=== PATIENT | male | born 1990 | race Caucasian/White ===

== ENCOUNTER 2024-09-17 13:36 | Inpatient (IN) | payer OTHER ==
[2024-09-17 14:16] LABS: Basophils % (A) 0 %; Eosinophils # (A) 0.2 k/uL (0-0.7); Eosinophils % (A) 2 %; HGB 14.9 gm/dL (13.0-17.5); Lymphocytes # (A) 1.8 k/uL (1.0-4.8); Lymphocytes % (A) 18 %; MCH 29.1 pg (25.0-35.0); MCHC 33.2 g/dL (31.0-37.0); MCV 87.7 fL (80.0-100.0); Mean Platelet Volume 6.5; Monocytes # (A) 0.5 k/uL (0-1.0); Monocytes % (A) 6 %; Neutrophils # (A) 7.3 k/uL (1.3-7.7); Neutrophils % (A) 74 %; Platelet Count 343 k/uL (150-450); RBC 5.13 m/uL (4.30-5.90); RDW 12.4 % (11.5-15.5); WBC 9.9 k/uL (3.8-10.6)
[2024-09-17] MEDS: SODIUM CHLORIDE 0.9% 1,000 ML IV STA (14:19)
[2024-09-17 14:28] LABS: ALT 14 U/L (4-49); AST 14 U/L (17-59); Acetaminophen <10.0 ug/mL; African American GFR (CKD) >90 (>60 ml/min/1.73 sqM); Albumin 4.8 g/dL (3.5-5.0); Alcohol <10 mg/dL; Alkaline Phosphatase 81 U/L (38-126); Anion Gap 15 mmol/L; Blood Urea Nitrogen 10 mg/dL (9-20); Calcium 10.1 mg/dL (8.4-10.2); Carbon Dioxide 28 mmol/L (22-30); Chloride 101 mmol/L (98-107); Glucose 127 mg/dL (74-99); Lipase 34 U/L (23-300); Non-African American GFR(CKD) >90 (>60 ml/min/1.73 sqM); Potassium 4.2 mmol/L (3.5-5.1); Salicylate <1.0 mg/dL; Sodium 144 mmol/L (137-145); Total Bilirubin 0.4 mg/dL (0.2-1.3); Total Protein 7.9 g/dL (6.3-8.2)
[2024-09-17] MEDS ORDERED: NALOXONE 0.4 MG/ML 1 ML VIAL IV PRN (16:29)
--- NOTE | 2024-09-17 16:29 | ED ---
Overdose HPI - General Chief Complaint: Overdose Stated Complaint: OD/SI Time Seen by Provider: 09/17/24 13:45 Source: patient, EMS Mode of arrival: EMS - History of Present Illness Initial Comments: 33-year-old male who presents emergency department after he overdosed on clonidine. Patient went into [facility] today. He has a history of polysubstance abuse including cocaine, heroin and methamphetamines. States he last used 3 days ago. He also admits to intermittently drinking however infrequent. He took 20 tablets of 0.1 mg clonidine which was previously p rescribed for symptoms of opiate withdrawal. He states he took these medications in an attempt to get high. He denies that he tried to take these to harm himself. He denies abuse of any other substances or medications. When checking into [facility] [place] patient was sedated and having difficulty standing up straight. He did admit that he took in excess of the clonidine and therefore they recommended medical clearance. Patient is awake, alert and able to a provide history at this time. He denies headaches, visual changes, nausea, vomiting, chest pain, difficulty breathing. No other alleviating, precipitating or modifying factors - Related Data Home Medications Medication Instructions Recorded Confirmed Albuterol Inhaler [Ventolin Hfa 2 puff INHALATION RT-QID PRN 09/17/24 09/17/24 Inhaler] Desvenlafaxine [Pristiq ER] 100 mg PO DAILY 09/17/24 09/17/24 Fluticasone Propion/Salmeterol 2 puff INHALATION RT-BID 09/17/24 09/17/24 [Advair Hfa 115-21 Mcg Inhaler] Naltrexone HCl [Revia] 50 mg PO DAILY 09/17/24 09/17/24 Paliperidone [Invega] 9 mg PO DAILY 09/17/24 09/17/24 cloNIDine HCL [Catapres] 0.1 mg PO TID 09/17/24 09/17/24 Allergies Allergy/AdvReac Type Severity Reaction Status Date / Time amoxicillin Allergy Unknown Verified 09/17/24 14:59 Childhood Penicillins Allergy Unknown Verified 09/17/24 14:59 Childhood Review of Systems ROS Statement: Those systems with pertinent positive or pertinent negative responses have been documented in the HPI. ROS Other: All systems not noted in ROS Statement are negative. Past Medical History Past Psychological History: ADD/ADHD, Anxiety, Depression Smoking Status: Current every day smoker Past Alcohol Use History: Occasional Past Drug Use History: Cocaine, Heroin, IV Drug Use, Methamphetamine, Opiates, Prescription Drug Abuse - Past Family History Mother Family Medical History: No Reported History Father Family Medical History: No Reported History General Exam General appearance: alert, other (appears sedated) Head exam: Present: atraumatic, normocephalic, normal inspection Eye exam: Present: normal appearance, PERRL, EOMI. Absent: scleral icterus, co njunctival injection, periorbital swelling ENT exam: Present: normal exam, mucous membranes moist Neck exam: Present: normal inspection. Absent: tenderness, meningismus, lymphadenopathy Respiratory exam: Present: normal lung sounds bilaterally. Absent: respiratory distress, wheezes, rales, rhonchi, stridor Cardiovascular Exam: Present: normal rhythm, bradycardia, normal heart sounds. Absent: systolic murmur, diastolic murmur, rubs, gallop, clicks GI/Abdominal exam: Present: soft, normal bowel sounds. Absent: distended, tenderness, guarding, rebound, rigid Extremities exam: Present: normal inspection, full ROM, normal capillary refill. Absent: tenderness, pedal edema, joint swelling, calf tenderness Back exam: Present: normal inspection Neurological exam: Present: alert, oriented X3, CN II-XII intact Psychiatric exam: Present: normal affect, normal mood Skin exam: Present: warm, dry, intact, normal color. Absent: rash Course Vital Signs 09/17/24 09/17/24 09/17/24 13:41 14:17 14:30 Temperature 98.1 F Pulse Rate 56 L 46 L 43 L Respiratory 14 18 12 Rate Blood Pressure 106/63 111/74 123/66 O2 Sat by Pulse 99 98 98 Oximetry 09/17/24 09/17/24 09/17/24 15:11 16:07 17:24 Temperature Pulse Rate 44 L 46 L 59 L Respiratory 13 12 16 Rate Blood Pressure 112/68 118/76 119/80 O2 Sat by Pulse 98 97 98 Oximetry 09/17/24 09/17/24 09/17/24 17:41 18:29 18:47 Temperature Pulse Rate 79 65 61 Respiratory 16 16 16 Rate Blood Pressure 81/50 115/61 92/71 O2 Sat by Pulse 97 97 97 Oximetry 09/17/24 19:58 Temperature 98.4 F Pulse Rate 48 L Respiratory 16 Rate Blood Pressure 109/60 O2 Sat by Pulse 95 Oximetry Medical Decision Making - Medical Decision Making Was pt. sent in by a medical professional or institution (ISAIAS Watkins, OPERATIONS WELDER, urgent ca re, hospital, or care home...) When possible be specific @ -Patient was sent in from [place] Did you speak to anyone other than the patient for history (EMS, parent, family, police, friend...)? What history was obtained from this source @ -Spoke with EMS for history Did you review nursing and triage notes (agree or disagree)? Why? @ -I reviewed and agree with nursing and triage notes Were old charts reviewed (outside hosp., previous admission, EMS record, old EKG, old radiological studies, urgent care reports/EKG's, care home records)? Report findings @ -No old charts were reviewed Differential Diagnosis (chest pain, altered mental status, abdominal pain women, abdominal pain men, vaginal bleeding, weakness, fever, dyspnea, syncope, headache, dizziness, GI bleed, back pain, seizure, CVA, palpatations, mental health, musculoskeletal)? @ -Differential Altered Mental Status: Hypoglycemia, DKA, hypercapnia, ETOH, overdose, CO poisoning, trauma, myxedema coma, HTN encephalopathy, infection, encephalitis, psychosis, intercranial hemorrhage, hepatic encephalopathy, meningitis, CVA, this is not meant to be an all-inclusive list EKG interpreted by me (3pts min.). @ -Yes and demonstrates sinus bradycardia with a rate of 53. PA interval 140. QRS 96. QTc of 398. J Point elevation in all leads. Biphasic T wave in lead V2 X-rays interpreted by me (1pt min.). @ -None done CT interpreted by me (1pt min.). @ -None done U/S interpreted by me (1pt. min.). @ -None done What testing was considered but not performed or refused? (CT, X-rays, U/S, labs)? Why? @ -None What meds were considered but not given or refused? Why? @ -None Did you discuss the management of the patient with other professionals (professionals i.e. ISAIAS Watkins, OPERATIONS WELDER, lab, RT, psych nurse, manager social services, manager of compliance, teacher, recruitment officer, case hardener)? Give summary @ -Spoke with poison control and Dr. levine for admission Was smoking cessation discussed for >3mins.? @ -No Was critical care preformed (if so, how long)? @ -No Were there social determinants of health that impacted care today? How? (Homelessness, low income, unemployed, alcoholism, drug addiction, transportation, low edu. Level, literacy, decrease access to med. care, halfway, rehab)? @ -patient currently in rehab Was there de-escalation of care discussed even if they declined (Discuss DNR or withdrawal of care, Hospice)? DNR status @ -No What co-morbidities impacted this encounter? (DM, HTN, Smoking, COPD, CAD, Cancer, CVA, ARF, Chemo, Hep., AIDS, mental health diagnosis, sleep apnea, morbid obesity)? @ -polysubstance abuse Was patient admitted / discharged? Hospital course, mention meds given and route, prescriptions, significant lab abnormalities, going to OR and other pertinent info. @ -Upon arrival patient seen and evaluated in bed 12. Thorough history and physical exam was performed. IV is established. Laboratory studies are conducted. We did contact poison control who reports that the patient needs 12 hours of observation with supportive care. Patient does have bradycardia however remains easily arousable. I did recommend admission for which the patient was agreeable. Spoke with Dr. Levine for the admission. Undiagnosed new problem with uncertain prognosis? @ -No Drug Therapy requiring intensive monitoring for toxicity (Heparin, Nitro, Insulin, Cardizem)? @ -No Were any procedures done? @ -No Diagnosis/symptom? @ -Acute toxic encephalopathy, clonidine overdose Acute, or Chronic, or Acute on Chronic? @ -Acute Uncomplicated (without systemic symptoms) or Complicated (systemic symptoms)? @ -Complicated Side effects of treatment? @ -No Exacerbation, Progression, or Severe Exacerbation? @ -No Poses a threat to life or bodily function? How? (Chest pain, [place], NE, pneumonia, PE, COPD, DKA, ARF, appy, cholecystitis, CVA, Diverticulitis, Homicidal, Suicidal, threat to staff... and all critical care pts) @ -yes as patient did overdose on medications needs - Lab Data Result diagrams: 09/18/24 06:34 09/18/24 06:34 Lab Results 09/17/24 09/17/24 09/17/24 Range/Units 13:45 14:11 14:11 WBC 9.9 (3.8-10.6) k/uL RBC 5.13 (4.30-5.90) m/uL Hgb 14.9 (13.0-17.5) gm/dL Hct 45.0 (39.0-53.0) % MCV 87.7 (80.0-100.0) fL MCH 29.1 (25.0-35.0) pg MCHC 33.2 (31.0-37.0) g/dL RDW 12.4 (11.5-15.5) % Plt Count 343 (150-450) k/uL MPV 6.5 Neutrophils % 74 % Lymphocytes % 18 % Monocytes % 6 % Eosinophils % 2 % Basophils % 0 % Neutrophils # 7.3 (1.3-7.7) k/uL Lymphocytes # 1.8 (1.0-4.8) k/uL Monocytes # 0.5 (0-1.0) k/uL Eosinophils # 0.2 (0-0.7) k/uL Basophils # 0.0 (0-0.2) k/uL Sodium 144 (137-145) mmol/L Potassium 4.2 (3.5-5.1) mmol/L Chloride 101 (98-107) mmol/L Carbon Dioxide 28 (22-30) mmol/L Anion Gap 15 mmol/L BUN 10 (9-20) mg/dL Creatinine 0.84 (0.66-1.25) mg/dL Est GFR (CKD-EPI)AfAm >90 (>60 ml/min/1.73 sqM) Est GFR (CKD-EPI)NonAf >90 (>60 ml/min/1.73 sqM) Glucose 127 H (74-99) mg/dL Lactic Ac Sepsis Rflx Plasma Lactic Acid Bhanu (0.7-2.0) mmol/L Calcium 10.1 (8.4-10.2) mg/dL Total Bilirubin 0.4 (0.2-1.3) mg/dL AST 14 L (17-59) U/L ALT 14 (4-49) U/L Alkaline Phosphatase 81 (38-126) U/L Total Protein 7.9 (6.3-8.2) g/dL Albumin 4.8 (3.5-5.0) g/dL Lipase 34 (23-300) U/L Salicylates <1.0 mg/dL Urine Opiates Screen Not Detected (NotDetected) Ur Oxycodone Screen Not Detected (NotDetected) Urine Methadone Screen Not Detected (NotDetected) Acetaminophen <10.0 ug/mL Ur Barbiturates Screen Not Detected (NotDetected) U Tricyclic Antidepress Not Detected (NotDetected) Ur Phencyclidine Scrn Not Detected (NotDetected) Ur Amphetamines Screen Detected H (NotDetected) U Methamphetamines Scrn Not Detected (NotDetected) U Benzodiazepines Scrn Not Detected (NotDetected) Urine Cocaine Screen Not Detected (NotDetected) U Marijuana (THC) Screen Detected H (NotDetected) Serum Alcohol <10 mg/dL 09/17/24 09/17/24 Range/Units 14:11 15:20 WBC (3.8-10.6) k/uL RBC (4.30-5.90) m/uL Hgb (13.0-17.5) gm/dL Hct (39.0-53.0) % MCV (80.0-100.0) fL MCH (25.0-35.0) pg MCHC (31.0-37.0) g/dL RDW (11.5-15.5) % Plt Count (150-450) k/uL MPV Neutrophils % % Lymphocytes % % Monocytes % % Eosinophils % % Basophils % % Neutrophils # (1.3-7.7) k/uL Lymphocytes # (1.0-4.8) k/uL Monocytes # (0-1.0) k/uL Eosinophils # (0-0.7) k/uL Basophils # (0-0.2) k/uL Sodium (137-145) mmol/L Potassium (3.5-5.1) mmol/L Chloride (98-107) mmol/L Carbon Dioxide (22-30) mmol/L Anion Gap mmol/L BUN (9-20) mg/dL Creatinine (0.66-1.25) mg/dL Est GFR (CKD-EPI)AfAm (>60 ml/min/1.73 sqM) Est GFR (CKD-EPI)NonAf (>60 ml/min/1.73 sqM) Glucose (74-99) mg/dL Lactic Ac Sepsis Rflx Y Plasma Lactic Acid Bhanu 2.1 H* (0.7-2.0) mmol/L Calcium (8.4-10.2) mg/dL Total Bilirubin (0.2-1.3) mg/dL AST (17-59) U/L ALT (4-49) U/L Alkaline Phosphatase (38-126) U/L Total Protein (6.3-8.2) g/dL Albumin (3.5-5.0) g/dL Lipase (23-300) U/L Salicylates mg/dL Urine Opiates Screen (NotDetected) Ur Oxycodone Screen (NotDetected) Urine Methadone Screen (NotDetected) Acetaminophen ug/mL Ur Barbiturates Screen (NotDetected) U Tricyclic Antidepress (NotDetected) Ur Phencyclidine Scrn (NotDetected) Ur Amphetamines Screen (NotDetected) U Methamphetamines Scrn (NotDetected) U Benzodiazepines Scrn (NotDetected) Urine Cocaine Screen (NotDetected) U Marijuana (THC) Screen (NotDetected) Serum Alcohol mg/dL Disposition Clinical Impression: Clonidine overdose, Polysubstance (excluding opioids) dependence, Bradycardia Disposition: ADMITTED IP TO THIS [facility] Condition: Serious Is patient prescribed a controlled substance at d/c from ED?: No Time of Disposition: 16:29 Decision to Admit Reason: Admit from EC Decision Date: 09/17/24 Decision Time: 16:29
[2024-09-17] MEDS: SODIUM CHLORIDE 0.9% 1,000 ML IV SCH (17:01)
[2024-09-17] MEDS ORDERED: ALBUTEROL NEBULIZED 2.5 MG/3 ML INHALATION PRN (17:41)
--- NOTE | 2024-09-17 17:56 | P.HPIM ---
History of Present Illness H&P Date: 09/17/24 33 year old M with PMH of Asthma, Bipolar disorder, h/o IVDU (crack, methamphetamine, THC, fentanyl) presents to the ED after ingesting 20 clonidine pills prior to rehab. He was at [place] and felt extremely weak, he couldn't stand up. Patient states he was trying to get high prior to going to rehab. He denies any suicidal or homicidal ideation. Denies auditory or visual hallucinations. He currently feels well. In the ED he underwent extensive evaluation. BP 123/66, HR 43, RR 12, 98% on RA. CBC, CMP significant for glu 127, AST 14. Lactic acid 2.1. Salicylates, Tylenol, EtOH neg. EKG sinus bradycardia with sinus arrhythmia. Patient is admitted for further workup and management. General: non toxic, no distress, appears at stated age Derm: warm, dry Head: atraumatic, normocephalic, symmetric Mouth: no lip lesion, mucus membranes moist Cardiovascular: S1S2 bronwyn, no murmur Lungs: Decreased BS bilaterally, no rales , no accessory muscle use Ext: no gross muscle atrophy, no edema, no contractures Neuro: no focal neuro deficits Psych: Alert and oriented. Based on my assessment of this patient, this patient meets a high complexity level of care. Sinus bradycardia and hypotension secondary to Clonidine toxicity Lactic acidosis due to above Transaminitis Asthma not in acute exacerbation Bipolar disorder h/o IVDU Nicotine dependence Telemetry monitoring. NS at 130 cc/hr. Trend lactic acid until normal. Acute hepatitis panel. Albuterol neb PRN, Symbicort 2 INH BID. Restart Desvenlafaxine 100 mg PO QD, Paliperidone 9 mg PO QD. Patient advised to quit all illicit substances. Nicotine patch 21 mg TRANSDERM QD. CODE STATUS: FULL CODE. DVT Prophylaxis: GI Prophylaxis: Designated medical POA if patient is not able to make medical decisions for themselves: I have reviewed the following oracle drm consultant notes: ED note. I have reviewed the results of the following tests: As above. I have ordered the following tests: As above. I have discussed the care of this patient with the following independent historian: RN regarding plan of care. I have independently interpreted the following test below: EKG I have discussed the management of this patient with the following physician: Past Medical History Past Psychological History: ADD/ADHD, Anxiety, Depression Smoking Status: Current every day smoker Past Alcohol Use History: Occasional Past Drug Use History: Cocaine, Heroin, IV Drug Use, Methamphetamine, Opiates, Prescription Drug Abuse Medications and Allergies Home Medications Medication Instructions Recorded Confirmed Type Albuterol Inhaler [Ventolin Hfa 2 puff INHALATION RT-QID PRN 09/17/24 09/17/24 History Inhaler] Desvenlafaxine [Pristiq ER] 100 mg PO DAILY 09/17/24 09/17/24 History Fluticasone Propion/Salmeterol 2 puff INHALATION RT-BID 09/17/24 09/17/24 History [Advair Hfa 115-21 Mcg Inhaler] Naltrexone HCl [Revia] 50 mg PO DAILY 09/17/24 09/17/24 History Paliperidone [Invega] 9 mg PO DAILY 09/17/24 09/17/24 History cloNIDine HCL [Catapres] 0.1 mg PO TID 09/17/24 09/17/24 History Allergies Allergy/AdvReac Type Severity Reaction Status Date / Time amoxicillin Allergy Unknown Verified 09/17/24 14:59 Childhood Penicillins Allergy Unknown Verified 09/17/24 14:59 Childhood Physical Exam Vitals: Vital Signs Temp Pulse Resp BP Pulse Ox 09/17/24 17:41 79 16 81/50 97 09/17/24 17:24 59 L 16 119/80 98 09/17/24 16:07 46 L 12 118/76 97 09/17/24 15:11 44 L 13 112/68 98 09/17/24 14:30 43 L 12 123/66 98 09/17/24 14:17 46 L 18 111/74 98 09/17/24 13:41 98.1 F 56 L 14 106/63 99 Intake and Output 09/17/24 09/17/24 09/17/24 06:59 14:59 22:59 Other: Weight 74.843 kg Results CBC & Chem 7: 09/17/24 14:11 09/17/24 14:11 Labs: Abnormal Lab Results - Last 24 Hours (Table) 09/17/24 09/17/24 Range/Units 14:11 14:11 Glucose 127 H (74-99) mg/dL Plasma Lactic Acid Bhanu 2.1 H* (0.7-2.0) mmol/L AST 14 L (17-59) U/L
[2024-09-17 18:11] LABS: Amphetamine Screen,Urine Detected (NotDetected); Barbiturate Screen,Urine Not Detected (NotDetected); Benzodiazepines Screen,Urine Not Detected (NotDetected); Cocaine Screen,Urine Not Detected (NotDetected); Methadone Screen, Urine Not Detected (NotDetected); Opiate Screen,Urine Not Detected (NotDetected); Oxycodone Screen, Urine Not Detected (NotDetected); Phencyclidine Screen,Urine Not Detected (NotDetected); Tricyclic Antidepressant,Urine Not Detected (NotDetected); Urn Cannabinoid Scrn Detected (NotDetected)
[2024-09-17] MEDS: NICOTINE 21MG/24HR PATCH TRANSDERM SCH (18:50)
[2024-09-17] MEDS: SYMBICORT 160-4.5 MCG INHALER INHALATION SCH (20:57)
[2024-09-18 03:47] VITALS: TEMP 97.9
[2024-09-18 06:57] LABS: Basophils % (A) 1 %; Eosinophils # (A) 0.2 k/uL (0-0.7); Eosinophils % (A) 3 %; HCT 40.4 % (39.0-53.0); HGB 13.2 gm/dL (13.0-17.5); Lymphocytes # (A) 2.4 k/uL (1.0-4.8); Lymphocytes % (A) 36 %; MCH 29.5 pg (25.0-35.0); MCHC 32.6 g/dL (31.0-37.0); MCV 90.5 fL (80.0-100.0); Mean Platelet Volume 6.8; Monocytes # (A) 0.5 k/uL (0-1.0); Monocytes % (A) 8 %; Neutrophils # (A) 3.5 k/uL (1.3-7.7); Neutrophils % (A) 51 %; Platelet Count 267 k/uL (150-450); RBC 4.46 m/uL (4.30-5.90); RDW 12.6 % (11.5-15.5); WBC 6.8 k/uL (3.8-10.6)
[2024-09-18 07:12] LABS: African American GFR (CKD) >90 (>60 ml/min/1.73 sqM); Anion Gap 5 mmol/L; Blood Urea Nitrogen 7 mg/dL (9-20); Calcium 9.3 mg/dL (8.4-10.2); Carbon Dioxide 28 mmol/L (22-30); Chloride 107 mmol/L (98-107); Glucose 106 mg/dL (74-99); Non-African American GFR(CKD) >90 (>60 ml/min/1.73 sqM); Sodium 140 mmol/L (137-145)
[2024-09-18] MEDS: DESVENLAFAXINE SUCCINATE 50 MG TAB.ER.24H PO SCH (08:12)
[2024-09-18] MEDS: NALTREXONE HCL 50 MG TAB PO SCH (08:12)
[2024-09-18] MEDS: PALIPERIDONE 3 MG TAB.ER.24 PO SCH (08:12)
[2024-09-18 11:08] VITALS: BP 131/68; PULSE 67; RESP 20
[2024-09-18 11:33] LABS: Hepatitis B Core IgM Nonreactive (Nonreactive); Hepatitis B Surface Antigen Nonreactive (Nonreactive); Hepatitis C IgG Antibody Reactive (Nonreactive)
--- NOTE | 2024-09-18 12:42 | P.DS ---
Providers Date of admission: 09/17/24 16:34 Expected date of discharge: 09/18/24 Attending physician: Kwadwo Lo Consults: 09/18/24 07:25 Consult Physician Routine Consulting Provider: Psychiatry - [facility] Psychiatry Consult Reason/Comments: overdose, needs psych eval per [place] Do you want consulting provider notified?: Already Contacted Primary care physician: Stated None Hospital Course: AMA note 33 year old M with PMH of Asthma, Bipolar disorder, h/o IVDU (crack, methamphetamine, THC, fentanyl) presents to the ED after ingesting 20 clonidine pills prior to rehab. He was at [place] and felt extremely weak, he couldn't stand up. Patient states he was trying to get high prior to going to rehab. He denies any suicidal or homicidal ideation. Denies auditory or visual hallucinations. He currently feels well. In the ED he underwent extensive evaluation. BP 123/66, HR 43, RR 12, 98% on RA. CBC, CMP significant for glu 127, AST 14. Lactic acid 2.1. Salicylates, Tylenol, EtOH neg. EKG sinus bradycardia with sinus arrhythmia. Patient is admitted for further workup and management. Started on Telemetry monitoring. Unfortunately patient left AMA prior to being seen on 09/18. No physical exam was performed. Discharge Diagnosis: Sinus bradycardia and hypotension secondary to Clonidine toxicity Lactic acidosis due to above Transaminitis Asthma not in acute exacerbation Bipolar disorder h/o IVDU Nicotine dependence Patient Condition at Discharge: Serious Plan - Discharge Summary Discharge Rx Participant: No New Discharge Prescriptions: No Action Paliperidone [Invega] 9 mg PO DAILY cloNIDine HCL [Catapres] 0.1 mg PO TID Naltrexone HCl [Revia] 50 mg PO DAILY Desvenlafaxine [Pristiq ER] 100 mg PO DAILY Albuterol Inhaler [Ventolin Hfa Inhaler] 2 puff INHALATION RT-QID PRN PRN Reason: Shortness Of Breath Fluticasone Propion/Salmeterol [Advair Hfa 115-21 Mcg Inhaler] 2 puff INHALATION RT-BID Discharge Medication List Albuterol Inhaler [Ventolin Hfa Inhaler] 2 puff INHALATION RT-QID PRN 09/17/24 [History] Desvenlafaxine [Pristiq ER] 100 mg PO DAILY 09/17/24 [History] Fluticasone Propion/Salmeterol [Advair Hfa 115-21 Mcg Inhaler] 2 puff INHALATION RT-BID 09/17/24 [History] Naltrexone HCl [Revia] 50 mg PO DAILY 09/17/24 [History] Paliperidone [Invega] 9 mg PO DAILY 09/17/24 [History] cloNIDine HCL [Catapres] 0.1 mg PO TID 09/17/24 [History] Follow up Appointment(s)/Referral(s): None,Stated [Primary Care Provider] - 1-2 days Discharge Disposition: LEFT AGAINST MEDICAL ADVICE
[2024-09-18 15:24] LABS: Hepatitis A Antibody IgM Nonreactive (Nonreactive)
== END 2024-09-18 11:04 | disposition left against medical advice (07) | DRG 812 ==
LOC: EC 13:36 → 3SCARD 16:34
PROVIDERS: ADMIT Student in an Organized Health Care Education/Training Program; ATTEND Student in an Organized Health Care Education/Training Program
DX: T46.5X1A Poisoning by other antihypertensive drugs, accidental (unintentional), initial encounter (principal); R00.1 Bradycardia, unspecified; F31.9 Bipolar disorder, unspecified; F41.9 Anxiety disorder, unspecified; F17.210 Nicotine dependence, cigarettes, uncomplicated; E87.20 Acidosis, unspecified; F90.9 Attention-deficit hyperactivity disorder, unspecified type; R74.01 Elevation of levels of liver transaminase levels; I95.89 Other hypotension; J45.909 Unspecified asthma, uncomplicated; F11.20 Opioid dependence, uncomplicated; F14.20 Cocaine dependence, uncomplicated; F15.20 Other stimulant dependence, uncomplicated; Z53.29 Procedure and treatment not carried out because of patient's decision for other reasons; Z79.899 Other long term (current) drug therapy
CPT/HCPCS: 36415; 80048; 80053; 80074; 80143; 80179; 80306; 80320; 83605; 83690; 85025; 93005; 94640; 96360; 96361; 99285